=== PATIENT | female | born 1975 | race Two or more races ===

== ENCOUNTER 2018-09-23 11:18 | Emergency (ER) | payer OTHER, MEDICAID ==
[~2018-09-23] VITALS: Ht 165.1 cm; Wt 78.0 kg
[2018-09-23] MEDS ORDERED: BENAZEPRIL HCL5 MG ORAL (11:23)
[2018-09-23 11:30] VITALS: BP 163/89
[2018-09-23 11:57] LABS: APPEARANCE,URINE CLEAR; BILIRUBIN, URINE NEGATIVE (NEGATIVE); COLOR,URINE PALE YELLOW; GLUCOSE, URINE (UA) NEGATIVE (NEGATIVE); KETONES,URINE NEGATIVE (NEGATIVE); LEUKOCYTE ESTERASE ,URINE 1+ (NEGATIVE); NITRITE,URINE NEGATIVE (NEGATIVE); PH,URINE 7 (4.5-8.0); PROTEIN,URINE NEGATIVE (NEGATIVE); UROBILINOGEN,URINE NORMAL MG/DL (0.0-1.0)
[2018-09-23] MEDS ORDERED: Phenazopyridine 200mg tab ORAL ONE (12:30)
[2018-09-23] MEDS ORDERED: PHENAZOPYRIDIN200 MG ORAL (12:32)
[2018-09-23] MEDS ORDERED: NITROFURANTOIN100 M2 ORAL (12:32)
--- NOTE | 2018-09-23 12:32 | Emergency Room Report ---
History of Present Illness General Chief Complaint: Female Urogenital Problems Source: Patient Present Illness HPI 43-year-old female presents to the emergency department complaining of 6/10 in severity dysuria 3 days. Patient denies fevers, chills, low back pain, hematuria, urinary frequency or urgency. Patient denies abdominal pain or tenderness. Pt. denies . Patient denies genital lesions, rashes or recent antibiotic use. Allergies: Coded Allergies: No Known Allergies (Unverified , 09/23/18) Patient History Past Medical History: see triage record Past Surgical History: none Pertinent Family History: none Now: No Reviewed Nursing Documentation: PMH: Agreed; PSxH: Agreed Nursing Documentation-PMH Hx Hypertension: Yes Review of Systems All Other Systems: negative except mentioned in HPI Physical Exam Vital Signs Date Time Temp Pulse Resp B/P (MAP) Pulse Ox O2 Delivery O2 Flow Rate FiO2 09/23/18 11:19 97.9 78 18 163/89 99 Room Air Sp02 EP Interpretation: reviewed, normal General Appearance: no apparent distress, alert, GCS 15, non-toxic Head: normocephalic, atraumatic Eyes: bilateral eye normal inspection, bilateral eye PERRL ENT: hearing grossly normal, normal voice Neck: full range of motion Respiratory: lungs clear, normal breath sounds, speaking full sentences Cardiovascular #1: regular rate, rhythm Gastrointestinal: normal bowel sounds, non tender, soft Genitourinary: normal inspection, no CVA tenderness Musculoskeletal: back normal, gait/station normal, normal range of motion, non- tender Neurologic: alert, oriented x3, responsive, motor strength/tone normal, sensory intact, normal gait, speech normal, grossly normal Psychiatric: judgement/insight normal Skin: normal color, no rash, warm/dry, well hydrated Lymphatic: no adenopathy Medical Decision Making PA Attestation Dr. Chase is my supervising Physician whom patient management has been discussed with. Diagnostic Impression: Primary Impression: UTI (urinary tract infection) Qualified Codes: N30.01 - Acute cystitis with hematuria ER Course 43-year-old female presents to the emergency department complaining of 6/10 in severity dysuria 3 days. Patient denies fevers, chills, low back pain, hematuria, urinary frequency or urgency. Patient denies abdominal pain or tenderness. Pt. denies . Patient denies genital lesions, rashes or recent antibiotic use. Ddx considered but are not limited to UTi , Pyelo, STI, Stone, Cystitis Vital signs: are WNL, pt. is afebrile H&PE are most consistent with UTI ORDERS: - UA labs are attached - Positive for infection -Urine HCG: negative ED INTERVENTIONS: -Pyridium PO -I do not identify an emergent condition at this time. With current presentation , pt. is stable for close outpatient follow up and conservative treatment. D/ w pt. to return promptly to ED with worsening or new symptoms.- Pt. verbalizes' understanding and agreement with proposed treatment plan.proposed treatment plan. DISCHARGE: At this time pt. is stable for d/c to home. Will provide printed patient care instructions, and any necessary prescriptions. Care plan and follow up instructions have been discussed with the patient prior to discharge. Labs Test 09/23/18 11:30 Urine Color Pale yellow Urine Appearance Clear Urine pH 7 (4.5-8.0) Urine Specific [place] 1.005 (1.005-1.035) Urine Protein Negative (NEGATIVE) Urine Glucose (UA) Negative (NEGATIVE) Urine Ketones Negative (NEGATIVE) Urine Blood 5+ (NEGATIVE) Urine Nitrite Negative (NEGATIVE) Urine Bilirubin Negative (NEGATIVE) Urine Urobilinogen Normal MG/DL (0.0-1.0) Urine Leukocyte Esterase 1+ (NEGATIVE) Urine RBC 40-60 /HPF (0 - 2) Urine WBC 5-10 /HPF (0 - 2) Urine Squamous Epithelial Cells Occasional /LPF Urine Bacteria Occasional /HPF (NONE) Urine HCG, Qualitative Negative (NEGATIVE) Last Vital Signs Date Time Temp Pulse Resp B/P (MAP) Pulse Ox O2 Delivery O2 Flow Rate FiO2 09/23/18 11:30 97.9 72 18 163/89 99 Room Air Disposition: HOME, SELF-CARE Condition: Stable Scripts Phenazopyridine Hcl* (PYRIDIUM*) 200 Mg Tablet 200 MG ORAL THREE TIMES A DAY, #9 TAB 0 Refills Prov: Jane Smallwood 09/23/18 Nitrofurantoin Monohyd/M-Cryst* (MACROBID 100 MG*) 100 Mg Capsule 100 MG ORAL EVERY 12 HOURS for 5 Days, #10 CAP Prov: Jane Smallwood 09/23/18 Patient Instructions: Urinary Tract Infection Additional Instructions: Take medications as directed. Follow up with a Primary Care Provider in 3-5 days, even if your symptoms have resolved. --Please review list of primary care clinics, if you do not already have a primary care provider Return sooner to ED if new symptoms occur, or current symptoms become worse. Pyridium will cause your urine to change color (Red/[place]), this is a normal side effect of the medication. - Please note that this Emergency Department Report was dictated using [employer] coordinator technology software, occasionally this can lead to erroneous entry secondary to interpretation by the dictation equipment. Jane Smallwood Sep 23, 2018 12:32
[2018-09-23 12:41] VITALS: BP 163/89
== END 2018-09-23 12:42 | disposition home or self-care (01) ==
LOC: EMR 12:39
DX: N39.0 Urinary tract infection, site not specified (principal); I10 Essential (primary) hypertension
CPT/HCPCS: 81003; 81025; 99283

== ENCOUNTER 2019-08-27 16:23 | Emergency (ER) | payer MEDICAID, OTHER ==
[~2019-08-27] VITALS: Ht 152.4 cm; Wt 83.9 kg
[~2019-08-27 16:23] MED LIST: BENAZEPRIL HCL5 MG ORAL; NITROFURANTOIN100 M2 ORAL; PHENAZOPYRIDIN200 MG ORAL
--- NOTE | 2019-08-27 16:29 | NUR ---
ED Nurse Note: PT. NOT IN THE WAITING ROOM UPON BEING CALLED AT TRIAGE
[2019-08-27 16:56] VITALS: BP 178/105
--- NOTE | 2019-08-27 16:59 | NUR ---
ER Nurse Note: Pt walked in c/o painful urination, frequency urination since 1 week. Pt stated she was prescribed macrobid 100 mg and was complient but not effective. BP elevated in triage; pt stated she did not take her BP med today. Pt denies headache, dizziness. Urine sent; awaiting results. ER PA at bedside; [facility]
[2019-08-27 17:06] LABS: APPEARANCE,URINE SLIGHTLY CLOUDY; BILIRUBIN, URINE NEGATIVE (NEGATIVE); COLOR,URINE PALE YELLOW; GLUCOSE, URINE (UA) NEGATIVE (NEGATIVE); KETONES,URINE NEGATIVE (NEGATIVE); LEUKOCYTE ESTERASE ,URINE 3+ (NEGATIVE); NITRITE,URINE NEGATIVE (NEGATIVE); PH,URINE 6 (4.5-8.0); PROTEIN,URINE 3+ (NEGATIVE); UROBILINOGEN,URINE NORMAL MG/DL (0.0-1.0)
--- NOTE | 2019-08-27 17:31 | NUR ---
ER Nurse Note: Per ER PA orders, labs were drawn and sent to lab. Awaiting results. Pt denies pain, no signs of distress. Pt ambulatory with steady gait. Will continue to [facility].
[2019-08-27 17:43] LABS: BASOPHILS % (AUTO) 1.2 % (0.0-2.0); EOSINOPHILS % (AUTO) 2.1 % (0.0-3.0); HEMATOCRIT 42.6 % (37.0-47.0); HEMOGLOBIN 15.4 G/DL (12.0-16.0); LYMPHOCYTES % (AUTO) 26.7 % (20.0-45.0); MEAN CORPUSCULAR VOLUME 85 FL (80-99); MONOCYTES % (AUTO) 5.6 % (1.0-10.0); NEUTROPHILS % (AUTO) 64.4 % (45.0-75.0); PLATELET COUNT 273 K/UL (150-450); RED BLOOD COUNT 5.02 M/UL (4.20-5.40); RED CELL DISTRIBUTION WIDTH 10.4 % (11.6-14.8); WHITE BLOOD COUNT 8.7 K/UL (4.8-10.8)
--- NOTE | 2019-08-27 17:47 | Emergency Room Report ---
History of Present Illness General Chief Complaint: Female Urogenital Problems Source: Patient Present Illness HPI 44-year-old female with no significant past medical history here complaining of 2 weeks of urinary frequency and dysuria. Patient reports that she finished taking Macrobid 1 week ago however symptoms persist. Patient reports that she had a hysterectomy 20 years ago however does not recall the reason. Denies vaginal spotting and bleeding. Complains of suprapubic pain however denies flank pain, nausea vomiting, fever and chills. Patient sitting comfortably with stable vital signs. Blood pressure is elevated as patient has not taken her blood pressure medication however she takes her blood pressure medication in the emergency room today and the blood pressure drops from 178/1 111-128/80. Denies vaginal discharge Allergies: Coded Allergies: No Known Allergies (Unverified , 09/23/18) Patient History Past Medical History: none Past Surgical History: unable to obtain Pertinent Family History: none Last Menstrual Period: na Now: No Immunizations: UTD Reviewed Nursing Documentation: PMH: Agreed; PSxH: Agreed Nursing Documentation-PMH Hx Hypertension: Yes Review of Systems All Other Systems: negative except mentioned in HPI Physical Exam Vital Signs Date Time Temp Pulse Resp B/P (MAP) Pulse Ox O2 Delivery O2 Flow Rate FiO2 08/27/19 16:40 98.4 98 16 178/105 (129) 96 Room Air Sp02 EP Interpretation: reviewed, normal General Appearance: no apparent distress, alert, GCS 15, non-toxic Head: normocephalic, atraumatic Eyes: bilateral eye normal inspection, bilateral eye PERRL ENT: hearing grossly normal, normal pharynx, no angioedema, normal voice Neck: full range of motion, supple/symm/no masses Respiratory: chest non-tender, lungs clear, normal breath sounds, no rhonchi, no wheezing, speaking full sentences Cardiovascular #1: regular rate, rhythm, no edema, no murmur Gastrointestinal: normal bowel sounds, non tender, soft, no bruit, non- distended, no guarding, no rebound Genitourinary: no CVA tenderness Musculoskeletal: back normal, gait/station normal, normal range of motion, non- tender, no calf tenderness Neurologic: alert, oriented x3, responsive, motor strength/tone normal, sensory intact, speech normal Psychiatric: judgement/insight normal, memory normal, mood/affect normal, no suicidal/homicidal ideation Skin: no rash Lymphatic: no adenopathy Medical Decision Making PA Attestation All diagnoses and treatment plans were reviewed and discussed with my supervising physician Dr. Weston Diagnostic Impression: Primary Impression: UTI (urinary tract infection) Additional Impression: Elevated liver enzymes ER Course 44-year-old female with no significant past medical history here complaining of 2 weeks of urinary frequency and dysuria. Patient reports that she finished taking Macrobid 1 week ago however symptoms persist. Patient reports that she had a hysterectomy 20 years ago however does not recall the reason. Denies vaginal spotting and bleeding. Complains of suprapubic pain however denies flank pain, nausea vomiting, fever and chills. Patient sitting comfortably with stable vital signs. Blood pressure is elevated as patient has not taken her blood pressure medication however she takes her blood pressure medication in the emergency room today and the blood pressure drops from 178/1 111-128/80. Denies vaginal discharge Ddx considered but are not limited to: UTI, pyelonephritis, urinary incontinence , prolapsed bladder Vital signs: are WNL, pt. is afebrile H&PE are most consistent with: UTI, incidental finding of elevated liver enzyme most likely secondary to fatty liver as patient is nontender ORDERS: UA, urine test, CBC, CMP, Keflex, Pyridium ED INTERVENTIONS: None required at this time. DISCHARGE: At this time pt. is stable for d/c to home. Will provide printed patient care instructions, and any necessary prescriptions. Care plan and follow up instructions have been discussed with the patient prior to discharge. Patient to follow-up with her primary care provider also due to blood in urine to rule out endometrial cancer as patient is post hysterectomy however blood in urine can be secondary to UTI. Avoid eating fatty greasy food. If worsening symptoms return to the emergency room Last Vital Signs Date Time Temp Pulse Resp B/P (MAP) Pulse Ox O2 Delivery O2 Flow Rate FiO2 08/27/19 16:56 98.4 92 16 178/105 96 Room Air Disposition: HOME, SELF-CARE Condition: Stable Scripts Phenazopyridine Hcl* (PYRIDIUM*) 200 Mg Tablet 200 MG ORAL THREE TIMES A DAY for 2 Days, #6 TAB 0 Refills Prov: Greer Jackson 08/27/19 Cephalexin* (KEFLEX*) 500 Mg Capsule 500 MG ORAL EVERY 6 HOURS for 7 Days, #28 CAP Prov: Greer Jackson 08/27/19 Referrals: [facility]ERR[facility] (PCP) Patient Instructions: Fatty Liver, Urinary Tract Infection Additional Instructions: Take medication as directed, follow with your primary care provider, also be referred to a log roper for ultrasound of bladder due to blood in your urine. If worsening symptoms return to the emergency room Greer Jackson Aug 27, 2019 17:47
[2019-08-27] MEDS ORDERED: PHENAZOPYRIDIN200 MG ORAL (17:48)
[2019-08-27] MEDS ORDERED: CEPHALEXIN500 MG ORAL (17:48)
[2019-08-27 17:52] VITALS: BP 127/86
[2019-08-27 17:52] LABS: ANION GAP 11 mmol/L (5-15); BLOOD UREA NITROGEN 10 mg/dL (7-18); CARBON DIOXIDE 28 MMOL/L (21-32); CHLORIDE 103 MMOL/L (98-107); CREATININE 0.7 MG/DL (0.55-1.30); POTASSIUM 3.7 MMOL/L (3.5-5.1); SODIUM 142 MMOL/L (136-145)
[2019-08-27 17:57] LABS: ALANINE AMINOTRANSFERASE 173 U/L (12-78); ALBUMIN 3.8 G/DL (3.4-5.0); ALBUMIN/GLOBULIN RATIO 0.9 (1.0-2.7); ALKALINE PHOSPHATASE 100 U/L (46-116); ASPARTATE AMINO TRANSFERASE 93 U/L (15-37); BILIRUBIN,TOTAL 0.2 MG/DL (0.2-1.0)
--- NOTE | 2019-08-27 18:00 | NUR ---
ER Nurse Note: BP rechecked and enformed ER PA.
[2019-08-27 18:42] VITALS: BP 127/86
--- NOTE | 2019-08-27 18:42 | NUR ---
ER Nurse Note: Pt seen, treated, medically cleared for discharge by ERMD. Discharge instuctions and prescriptions given with repeat verbalization by pt. Emphasized to follow up with primay care provider. All orders completed per ERMD orders. Pt a&ox4, VSS, no signs of distress; pt ambulatory with steady gait. ID band removed. IV removed; site clean and bandaged. All questions answered per pt's questions. Pt left with all belongings, left with own transportation.
== END 2019-08-27 18:42 | disposition home or self-care (01) ==
LOC: EMR 17:45
DX: N39.0 Urinary tract infection, site not specified (principal); R79.89 Other specified abnormal findings of blood chemistry; I10 Essential (primary) hypertension
CPT/HCPCS: 36415; 80053; 81001; 81025; 85025; 87086; Z7502; 99283